=== PATIENT | male | born 1995 | race Two or more races ===

== ENCOUNTER 2020-09-23 01:08 | Emergency (ER) | payer OTHER ==
[~2020-09-23] VITALS: Ht 172.7 cm; Wt 65.8 kg
--- NOTE | 2020-09-23 01:19 | NUR ---
AT BEDSIDE FOR SUTURING.
[2020-09-23 01:26] VITALS: BP 123/73
[2020-09-23] MEDS ORDERED: LIDOCAINE HCL/MPF 1% 30 ML VIAL IJ ONE (01:53)
--- NOTE | 2020-09-23 01:53 | NUR ---
RADIOLOGY AT BEDSIDE FOR XRAY
[2020-09-23] MEDS ORDERED: TDAP [DIPH/PERTUSSIS/TET] 0.5 ML VIAL IM ONE ×2 (01:59→02:00)
[2020-09-23] MEDS ORDERED: LIDOCAINE 1%-EPI 1:100,000 20 ML VIAL TP ONE (02:00)
== END 2020-09-23 02:27 | disposition home or self-care (01) ==
LOC: ER 01:11
DX: S61.011A Laceration without foreign body of right thumb without damage to nail, initial encounter (principal); S61.411A Laceration without foreign body of right hand, initial encounter; W25.XXXA Contact with sharp glass, initial encounter; Y93.89 Activity, other specified; Y92.89 Other specified places as the place of occurrence of the external cause; Y99.8 Other external cause status
CPT/HCPCS: 12002; 73130; 90471; 90715; 99283; J3490